=== PATIENT | female | born 1995 | race African-American/Black ===

== ENCOUNTER 2020-03-24 16:42 | Emergency (ER) | payer OTHER ==
[~2020-03-24 16:42] MED LIST: NAPROXEN500 MG PO
[2020-03-24] MEDS ORDERED: ONDANSETRON ODT4 MG SL (19:39)
[2020-03-24] MEDS ORDERED: KETOROLAC TROME10 MG PO (19:39)
== END 2020-03-24 20:00 | disposition home or self-care (01) ==
LOC: FER 16:42
DX: N94.6 Dysmenorrhea, unspecified (principal)
CPT/HCPCS: 99283; J1885

== ENCOUNTER 2020-06-11 13:28 | Emergency (ER) | payer OTHER ==
[~2020-06-11 13:28] MED LIST changes: +KETOROLAC TROME10 MG PO; +ONDANSETRON ODT4 MG SL
[2020-06-11 14:42] LABS: BASOPHIL 1.2 % (0-2); EOSINOPHIL 5.7 % (0-5); HCT 36.1 % (37.0-47.0); HGB 11.6 g/dl (12.5-16.0); LYMPHOCYTE 36.8 % (15-48); MCH 28.1 pg (25.0-31.0); MCHC 32.1 g/dL (32.0-36.0); MCV 87.4 fL (78.0-100.0); MONOCYTE 10.5 % (0-12); NRBC 0; PLT 207 K/uL (150-400); RBC 4.13 M/uL (4.20-5.40); RDW 12.9 % (11.5-14.0); WBC 5.1 K/uL (4.0-10.5)
[2020-06-11 14:59] LABS: CREATININE 1.09 mg/dL (0.51-0.95); POTASSIUM 4.1 mmol/L (3.5-5.1)
[2020-06-14 21:06] LABS: CHLAMYDIA TRACHOMATIS, NAA Negative (Negative); NEISSERIA GONORRHOEAE, NAA Negative (Negative)
== END 2020-06-11 15:30 | disposition home or self-care (01) ==
LOC: FER 13:28
PROVIDERS: Nurse Practitioner Family
DX: O99.891 Other specified diseases and conditions complicating pregnancy (principal); R10.9 Unspecified abdominal pain; O20.9 Hemorrhage in early pregnancy, unspecified; Z3A.00 Weeks of gestation of pregnancy not specified
CPT/HCPCS: 36415; 80048; 84702; 85025; 87491; 87591; 99284

== ENCOUNTER 2020-09-14 08:40 | Emergency (ER) | payer OTHER | END 2020-09-14 12:00 | disposition home or self-care (01) | LOC: FER 08:40 | DX: O99.892 Other specified diseases and conditions complicating childbirth (principal); M79.89 Other specified soft tissue disorders; M79.671 Pain in right foot; Z3A.18 18 weeks gestation of pregnancy | CPT/HCPCS: 93971 ==

== ENCOUNTER 2021-01-02 11:58 | Emergency (ER) | payer OTHER ==
[2021-01-02 13:10] LABS: BASOPHIL 0.4 % (0-2); EOSINOPHIL 2.7 % (0-5); HCT 33.9 % (37.0-47.0); HGB 10.2 g/dl (12.5-16.0); LYMPHOCYTE 23.4 % (15-48); MCH 25.8 pg (25.0-31.0); MCHC 30.1 g/dL (32.0-36.0); MCV 85.8 fL (78.0-100.0); MONOCYTE 10.9 % (0-12); MPV 10.4 fL (6.0-9.5); NEUTROPHIL 60.8 % (41-80); NRBC 0; PLT 150 K/uL (150-400); RBC 3.95 M/uL (4.20-5.40); RDW 13.8 % (11.5-14.0); WBC 6.8 K/uL (4.0-10.5)
[2021-01-02 13:29] LABS: CREATININE 0.67 mg/dL (0.51-0.95); POTASSIUM 3.7 mmol/L (3.5-5.1)
[2021-01-02 13:57] LABS: BILIRUBIN NEGATIVE (NEGATIVE); BLOOD NEGATIVE Ery/uL (NEGATIVE); CLARITY CLEAR (CLEAR); COLOR YELLOW (YELLOW); GLUCOSE (U) NORMAL (NORMAL); LEUKOCYTES TRACE Leu/uL (NEGATIVE); NITRITE NEGATIVE (NEGATIVE); PROTEIN NEGATIVE (NEGATIVE); UROBILINOGEN 0.2 mg/dL (0.2-1.0); pH 7.5 (5.0-9.0)
[2021-01-02 14:00] LABS: BACTERIA 3+
[2021-01-02 14:01] LABS: MUCOUS TRACE
[2021-01-02] MEDS ORDERED: CEPHALEXIN500 M1 PO (15:20)
== END 2021-01-02 15:31 | disposition home or self-care (01) ==
LOC: FER 11:58
PROVIDERS: Nurse Practitioner Family
DX: O99.891 Other specified diseases and conditions complicating pregnancy (principal); M54.41 Lumbago with sciatica, right side; Z3A.35 35 weeks gestation of pregnancy
CPT/HCPCS: 36415; 80048; 81001; 85025; 87088; 99283

== ENCOUNTER 2021-01-11 12:52 | Emergency (ER) | payer OTHER ==
[~2021-01-11 12:52] MED LIST changes: +CEPHALEXIN500 M1 PO
[2021-01-11 14:19] LABS: BASOPHIL 0.5 % (0-2); HCT 31.4 % (37.0-47.0); HGB 9.5 g/dl (12.5-16.0); LYMPHOCYTE 9.7 % (15-48); MCH 25.4 pg (25.0-31.0); MCHC 30.3 g/dL (32.0-36.0); MONOCYTE 10.2 % (0-12); MPV 11.4 fL (6.0-9.5); NEUTROPHIL 77.3 % (41-80); NRBC 0; PLT 125 K/uL (150-400); RBC 3.74 M/uL (4.20-5.40); RDW 14.2 % (11.5-14.0)
[2021-01-11 14:47] LABS: CREATININE 0.76 mg/dL (0.51-0.95); POTASSIUM 3.5 mmol/L (3.5-5.1)
[2021-01-11 14:48] LABS: CORONAVIRUS 2019 SARS-COV-2 NEGATIVE (NEGATIVE); INFLUENZA A NAA NEGATIVE (NEGATIVE)
[2021-01-11] MEDS ORDERED: ZOFRAN4 M1 PO (16:37)
== END 2021-01-11 16:25 | disposition home or self-care (01) ==
LOC: FER 12:52
PROVIDERS: Nurse Practitioner Family
DX: B34.9 Viral infection, unspecified (principal); Z20.822 Contact with and (suspected) exposure to COVID-19
CPT/HCPCS: 36415; 80048; 85025; 87880; 99284; J7120; U0002

== ENCOUNTER 2021-02-11 19:58 | Inpatient (IN) | payer OTHER ==
[~2021-02-11] VITALS: Ht 162.6 cm; Wt 112.5 kg
[~2021-02-11 19:58] MED LIST changes: +ZOFRAN4 M1 PO
[2021-02-11 20:53] LABS: HCT 34.4 % (37.0-47.0); HGB 10.5 g/dl (12.5-16.0); MCH 26.1 pg (25.0-31.0); MCHC 30.5 g/dL (32.0-36.0); MCV 85.4 fL (78.0-100.0); MPV 10.7 fL (6.0-9.5); RBC 4.03 M/uL (4.20-5.40); RDW 16.7 % (11.5-14.0); WBC 8.5 K/uL (4.0-10.5)
[2021-02-11 20:54] LABS: BILIRUBIN NEGATIVE (NEGATIVE); BLOOD TRACE-INTACT Ery/uL (NEGATIVE); CLARITY CLEAR (CLEAR); COLOR YELLOW (YELLOW); GLUCOSE (U) NORMAL (NORMAL); LEUKOCYTES NEGATIVE Leu/uL (NEGATIVE); NITRITE NEGATIVE (NEGATIVE); PROTEIN NEGATIVE (NEGATIVE); SPECIFIC GRAVITY 1.025 (1.001-1.030); UROBILINOGEN 0.2 mg/dL (0.2-1.0)
[2021-02-11 20:59] LABS: AMPHETAMINES NEGATIVE (NEGATIVE); BARBITURATES NEGATIVE (NEGATIVE); ECSTASY (MDMA) NEGATIVE (NEGATIVE); MARIJUANA (THC) NEGATIVE (NEGATIVE); METHADONE NEGATIVE (NEGATIVE); OPIATES NEGATIVE (NEGATIVE); OXYCODONE NEGATIVE (NEGATIVE)
[2021-02-11 21:02] LABS: BACTERIA 1+
[2021-02-13 01:05] LABS: BILIRUBIN NEGATIVE (NEGATIVE); BLOOD 3+ Ery/uL (NEGATIVE); COLOR YELLOW (YELLOW); GLUCOSE (U) NORMAL (NORMAL); LEUKOCYTES TRACE Leu/uL (NEGATIVE); NITRITE NEGATIVE (NEGATIVE); PROTEIN TRACE (LOW) mg/dL (NEGATIVE); SPECIFIC GRAVITY 1.015 (1.001-1.030); UROBILINOGEN 0.2 mg/dL (0.2-1.0)
[2021-02-13 01:06] LABS: CLARITY SLIGHTLY HAZY (CLEAR)
[2021-02-13 01:12] LABS: URINARY RBC 20-50
[2021-02-14 06:48] LABS: HCT 29.9 % (37.0-47.0); HGB 9.1 g/dl (12.5-16.0); MCH 26.3 pg (25.0-31.0); MCHC 30.4 g/dL (32.0-36.0); MCV 86.4 fL (78.0-100.0); MPV 10.5 fL (6.0-9.5); RBC 3.46 M/uL (4.20-5.40); RDW 16.8 % (11.5-14.0); WBC 9.4 K/uL (4.0-10.5)
== END 2021-02-15 14:04 | disposition home or self-care (01) | DRG 806 ==
LOC: FOB 19:58
PROVIDERS: ADMIT Obstetrics & Gynecology
PROC: 10E0XZZ Delivery of Products of Conception, External Approach (ICD-10-PCS; principal; 2021-02-13)
PROC: 0KQM0ZZ Repair Perineum Muscle, Open Approach (ICD-10-PCS; 2021-02-13)
DX: O99.02 Anemia complicating childbirth (principal); D62 Acute posthemorrhagic anemia; Z37.0 Single live birth; Z20.822 Contact with and (suspected) exposure to COVID-19; O99.214 Obesity complicating childbirth; O75.5 Delayed delivery after artificial rupture of membranes; O70.1 Second degree perineal laceration during delivery; Z3A.39 39 weeks gestation of pregnancy; D50.9 Iron deficiency anemia, unspecified; Z72.89 Other problems related to lifestyle
CPT/HCPCS: 36415; 80305; 81001; 86850; 86900; 86901; J0595; J2540; J7120; U0002

== ENCOUNTER 2021-10-12 10:14 | Emergency (ER) | payer OTHER ==
[2021-10-12] MEDS ORDERED: KETOROLAC TROME10 MG PO (10:56)
[2021-10-12] MEDS ORDERED: ONDANSETRON ODT4 MG PO (10:56)
== END 2021-10-12 15:18 | disposition home or self-care (01) ==
LOC: FER 10:14
DX: N94.6 Dysmenorrhea, unspecified (principal)
CPT/HCPCS: J1885